=== PATIENT | female | born 2000 | race Caucasian/White ===

== ENCOUNTER → 2020-01-19 12:16 | Outpatient (CLI) | payer OTHER, MEDICAID, SELFPAY ==
[2020-01-19 17:04] LABS: HCG Quantitative /Beta subunit 8240.2 mIU/mL
== END ==
PROVIDERS: Referring Provider Midwife; Visit Provider Midwife
DX: O20.0 Threatened abortion (principal)
CPT/HCPCS: 36415; 84144; 84702

== ENCOUNTER → 2020-01-25 13:04 | Outpatient (CLI) | payer OTHER, MEDICAID, SELFPAY ==
--- NOTE | 2020-01-25 | DI.US.S_ITS ---
PROCEDURE: US OB <= 14 WEEKS FETUS INDICATIONS: SIZE AND DATES OUTSIDE/PRIOR DATING DATA: Last menstrual period (LMP): 12/12/19. LMP-based estimated date of delivery (ELLI): 09/17/20 . First dating scan (date and location): 01/25/20 . Estimated date of delivery (ELLI) from first dating scan: 09/16/20 . TECHNIQUE: Real-time scanning was performed of the fetus and maternal pelvic organs, with image documentation. Endovaginal scanning was also performed to better visualize the fetus and maternal ovaries. COMPARISON: None. FINDINGS: Embryo: [place]-O [place]-rump length measures 7 mm, heart rate is 133 beats per minute. Measurement variability in dating: +/- 4 weeks by LMP, +/- 7 days by mean sac diameter (use before 6 weeks gestation if crown-rump length not able to be measured), +/- 5 days by crown-rump length (up to 8 weeks 6 days gestation), +/- 7 days by crown-rump length (up to 13 weeks 6 days gestation). Maternal organs: Ovaries normal considering gestational status . Limited images through the kidneys demonstrate no hydronephrosis. IMPRESSION: 6 week 3 day early 1st trimester gestation with cardiac activity observed. The delivery date is projected to be centered on 09/16/20, +/-5 days. Dictated by: Sukhdev Curiel M.D. on 01/25/2020 at 16:23 Approved by: Sukhdev Curiel M.D. on 01/25/2020 at 16:25
== END ==
PROVIDERS: Referring Provider Midwife; Visit Provider Midwife
DX: Z36.87 Encounter for antenatal screening for uncertain dates (principal); Z3A.01 Less than 8 weeks gestation of pregnancy
CPT/HCPCS: 76801

== ENCOUNTER 2021-09-19 14:30 | Emergency (ER) | payer OTHER, MEDICAID, SELFPAY ==
[2021-09-19 14:53] VITALS: BP 128/75; PULSE 50; RESP 18; TEMP 36.8; O2SAT 99; BMI 20.5
--- NOTE | 2021-09-19 15:01 | DI.US.S_ITS ---
PROCEDURE: US OB <= 14 WEEKS FETUS INDICATIONS: BLIDDING IN OUTSIDE/PRIOR DATING DATA: Last menstrual period (LMP): 08/16/2021. TECHNIQUE: Real-time scanning was performed of the fetus and maternal pelvic organs, with image documentation. Endovaginal scanning was also performed to better visualize the fetus and maternal ovaries. COMPARISON: None. FINDINGS: No gestational sac or embryo visualized in the uterine fundus. No uterine mass. There are a very large number of dilated and prominent periuterine veins. Both ovaries are normal in appearance. IMPRESSION: No findings of intrauterine or other acute finding. Very large number of dilated and prominent periuterine veins. Dictated by: Ben Xiao M.D. on 09/19/2021 at 16:25 Approved by: Ben Xiao M.D. on 09/19/2021 at 16:27
[2021-09-19 15:52] LABS: Add Manual Diff / Slide Review NO; Basophils Absolute Auto 0 /uL (0-100); Basophils Percent Auto 0.8 % (0-2); Eosinophils Absolute Auto 100 /uL (0-450); Eosinophils Percent Auto 1.8 % (2-4); Hematocrit 40.2 % (36-46); Hemoglobin 13.5 g/dL (12.0-16.0); Lymphocytes Absolute Auto 1800 /uL (1100-4500); Lymphocytes Percent Auto 32.1 % (25-40); Mean Corpuscular HGB Conc 33.6 % (30-36); Mean Corpuscular Hemoglobin 29.6 PG (26-34); Mean Corpuscular Volume 88.1 fL (80-100); Monocytes Absolute Auto 400 /uL (0-900); Monocytes Percent Auto 8.1 % (3-14); Neutrophils Absolute Auto 3100 /uL (1500-7000); Neutrophils Percent Auto 57.2 % (50-75); Platelet Count 229 X10^3/uL (150-400); Red Blood Cell Count 4.56 X10^6/uL (4.0-5.2); Red Cell Distribution Width 13.2 % (11.6-14.8); White Blood Cell Count 5.5 X10^3/uL (4.5-11.0)
[2021-09-19 16:00] LABS: Alanine Aminotransferase 15 IU/L (<35); Albumin 4.8 g/dL (3.5-5.0); Albumin Globulin Ratio 1.5 (1.0-2.8); Alkaline Phosphatase 63 U/L (38-126); Aspartate Aminotransferase 24 IU/L (14-36); BUN Creatinine Ratio 12.5 (6-22); Bilirubin Total 0.9 mg/dL (0.2-1.3); Blood Urea Nitrogen 10 mg/dL (7-17); Calcium 9.3 mg/dL (8.4-10.2); Carbon Dioxide 29 mmol/L (22-32); Chloride 104 mmol/L (98-107); Estimated Glomerular Filt Rate > 60.0 mL/min (>60); Globulin 3.2 g/dL (1.7-4.1); Glucose 101 mg/dL (70-100); HEMOLYSIS < 15 (0-50); Potassium 4.3 mmol/L (3.4-5.1); Sodium 138 mmol/L (137-145)
[2021-09-19 16:17] LABS: HCG Quantitative /Beta subunit 5.1 mIU/mL
[2021-09-19 17:24] VITALS: PULSE 58; O2SAT 96
[2021-09-19 17:30] VITALS: BP 114/71; PULSE 55; O2SAT 96
[2021-09-19 18:00] VITALS: BP 108/70; PULSE 60; O2SAT 97
[2021-09-19 18:30] VITALS: BP 110/62; PULSE 54; RESP 18; TEMP 36.6; O2SAT 100; O2SAT 98
--- NOTE | 2021-09-19 18:42 | ED_ITS ---
HPI - General Chief complaint: Vaginal Bleeding Stated complaint: possible miscarriage 6 weeks Time Seen by Provider: 09/19/21 18:14 Source: patient Mode of arrival: Ambulatory History of Present Illness HPI Narrative: 21-year-old female nonsmoker is a at about 5-6 weeks the presents with a chief complaint of minimal cramping and the passage of a quarter-sized clot this morning. She is now asymptomatic. She denies any dizziness, weakness or lightheadedness. She has had no fever or chills. She denies any ongoing cram ping, bleeding or leakage of fluid. She denies chest pain or shortness of breath. She denies any dysuria, frequency or urgency Related Data Home Medications Medication Instructions Recorded Confirmed VIT #49/IRON FUM/FA (MINI #0 10/17/16 TABLET) fluoxetine 20 mg capsule mg 09/19/21 Previous Rx's Medication Instructions Recorded ondansetron 4 mg disintegrating 4 mg SUBLINGUAL Q6HP PRN #20 odt 10/19/16 tablet (Zofran ODT) Allergies Allergy/AdvReac Type Severity Reaction Status Date / Time gabapentin [GABAPENTIN] Allergy Unknown Verified 09/19/21 15:00 guaifenesin [From MUCINEX] Allergy Unknown Verified 09/19/21 15:00 Review of Systems Review of Systems Narrative: GENERAL: Denies chills, fatigue, malaise, fever, sweats. HEENT: Denies sinus pain, ear pain, sore throat, difficulty swallowing, dizziness. RESPIRATORY: Denies dyspnea, cough, wheezing, hemoptysis, sputum. CARDIOVASCULAR: Denies chest pain, palpitations, orthopnea, edema, GASTROINTESTINAL: Denies nausea, vomiting, abdominal pain, diarrhea, constipation, melena. : See HPI MUSCULOSKELETAL: denies weakness, joint pain, or bony pain SKIN: Denies rash, skin lesions, or other NEUROLOGIC: Denies weakness, headache, numbness, change in speech, confusion, seizures, incoordination. PSYCHIATRIC: No concerning psychosocial issues. 12 point review of systems is negative except for those stated above Exam Narrative Exam Narrative: GENERAL: 21 year old patient appears stated age. Well-developed patient, in mild distress. HEAD: Atraumatic. Normocephalic. EYES: Pupils equal round and reactive. Extraocular motions intact. No scleral icterus. No injection or drainage. ENT: Nose without bleeding, purulent drainage. Throat without erythema, tonsillar hypertrophy or exudate. Airway patent. NECK: Trachea midline. Non tender CARDIOVASCULAR: Regular rate and rhythm without murmurs, gallops, or rubs. RESPIRATORY: Clear to auscultation. Breath sounds equal bilaterally. No wheezes, rales, or rhonchi. GASTROINTESTINAL: Abdomen soft, non-tender, nondistended. EXTREMITIES: No edema or joint tenderness. BACK: Nontender without deformity or crepitance. No flank tenderness. NEURO: AOx3. SKIN: No rash or erythema of visible areas Initial Vital Signs Initial Vital Signs: Vital Signs Temperature 98.2 F 09/19/21 14:53 Pulse Rate 50 L 09/19/21 14:53 Respiratory Rate 18 09/19/21 14:53 Blood Pressure 128/75 09/19/21 14:53 Pulse Oximetry 99 09/19/21 14:53 Course Orders Ordered: ED Orders 09/19/21 15:01 US OB <= 14 weeks fetus Stat 09/19/21 15:20 ABO RH Type Stat Complete Blood Count AUTO DIFF Stat Comprehensive Metabolic Panel Stat HCG Quantitative /Beta subunit Stat Vital Signs Vital signs: Vital Signs - 8 hr 09/19/21 14:53 09/19/21 17:24 09/19/21 17:30 Temperature 98.2 F Pulse Rate 50 L 58 L 55 L Respiratory Rate 18 Blood Pressure 128/75 114/71 Pulse Oximetry 99 96 96 09/19/21 18:00 Temperature Pulse Rate 60 Respiratory Rate Blood Pressure 108/70 Pulse Oximetry 97 MDM - OB/Uterine Contractions Lab Data Attestation: I reviewed the patient's lab results. Result diagrams: 09/19/21 15:20 09/19/21 15:20 Labs: Lab Results 09/19/21 09/19/21 09/19/21 Range/Units 15:20 15:20 15:20 WBC 5.5 (4.5-11.0) X10^3/uL RBC 4.56 (4.0-5.2) X10^6/uL Hgb 13.5 (12.0-16.0) g/dL Hct 40.2 (36-46) % MCV 88.1 (80-100) fL MCH 29.6 (26-34) PG MCHC 33.6 (30-36) % RDW 13.2 (11.6-14.8) % Plt Count 229 (150-400) X10^3/uL Neut % (Auto) 57.2 (50-75) % Lymph % (Auto) 32.1 (25-40) % Sunflower % (Auto) 8.1 (3-14) % Eos % (Auto) 1.8 L (2-4) % Baso % (Auto) 0.8 (0-2) % Neut # (Auto) 3100 (4083-6523) /uL Lymph # (Auto) 1800 (3132-2777) /uL Sunflower # (Auto) 400 (0-900) /uL Eos # (Auto) 100 (0-450) /uL Baso # (Auto) 0 (0-100) /uL Sodium 138 (137-145) mmol/L Potassium 4.3 (3.4-5.1) mmol/L Chloride 104 (98-107) mmol/L Carbon Dioxide 29 (22-32) mmol/L BUN 10 (7-17) mg/dL Creatinine 0.80 (0.52-1.04) mg/dL Estimated GFR > 60.0 (>60) mL/min BUN/Creatinine Ratio 12.5 (6-22) Glucose 101 H (70-100) mg/dL Calcium 9.3 (8.4-10.2) mg/dL Total Bilirubin 0.9 (0.2-1.3) mg/dL AST 24 (14-36) IU/L ALT 15 (<35) IU/L Alkaline Phosphatase 63 (38-126) U/L Total Protein 8.0 (6.3-8.2) g/dL Albumin 4.8 (3.5-5.0) g/dL Globulin 3.2 (1.7-4.1) g/dL Albumin/Globulin Ratio 1.5 (1.0-2.8) HCG, Quant 5.1 mIU/mL Blood Type O Positive Urine Dip Bedside Urine Glucose Negative Bedside Urine Bilirubin - Negative Bedside Urine Ketone + 15 Urine Specific [place] 1.015 Bedside Urine Occult Blood - Negative Bedside Urine pH 6.0 Bedside Urine Protein - Negative Bedside Urine Urobilinogen - Negative Bedside Urine Nitrite - Negative Bedside Urine Leukocytes - Negative Esterase Imaging Data US - OB: Radiologist's Impression: Yesenia Arrieta??21??F??2000 ? Allergy/Adv: gabapentin, guaifenesin Close Ultrasound (Signed) Ben Xiao - 09/19/21 Ultrasound (Signed) Sukhdev Curiel - 01/25/20 Launch?[address] [address] Ultrasound Report Signed Patient: Yesenia Arrieta MR#: [id number] : 2000 Acct:[id number] Age/Sex: 21 / F Date of Service: 09/19/21 Loc: ED Accession Number: [id number] ?? Procedure: US OB <= 14 weeks fetus Ordering Provider: Micheline Hines D.O. PROCEDURE:? US OB <= 14 WEEKS FETUS ? INDICATIONS:? BLIDDING IN ? OUTSIDE/PRIOR DATING DATA:? Last menstrual period (LMP):? 08/16/2021.? ? TECHNIQUE:? Real-time scanning was performed of the fetus and maternal pelvic organs, with image documentation.? Endovaginal scanning was also performed to better visualize the fetus and maternal ovaries.? ? COMPARISON:? None. ? FINDINGS:? No gestational sac or embryo visualized in the uterine fundus.? No uterine mass.? There are a very large number of dilated and prominent periuterine veins.? Both ovaries are normal in appearance. ? ? IMPRESSION:? No findings of intrauterine or other acute finding.? Very large number of dilated and prominent periuterine veins. ? ? ? Dictated by: Ben Xiao M.D. on 09/19/2021 at 16:25 ? ? Approved by: Ben Xiao M.D. on 09/19/2021 at 16:27 ? Discharge Plan Departure Patient Disposition: Home Clinical Impression: Vaginal bleeding Instructions: DI for Vaginal Bleeding During Activity Restrictions/Additional Instructions: *You have been diagnosed with [vaginal bleeding during 1st trimester. As we discussed it is hard to tell because of your symptoms, currently your history and physical exam as well as labs and ultrasound are very reassuring. Also, as we discussed without more information and a bit more time and is hard to tell if this is very early with a normal or if this is a miscarriage that happened recently. *What to do: *Please continue to take your regular medications as directed. [ ] New medication prescriptions sent to your pharmacy: [ ] [ ] New medication written as a paper prescription [ x] No new medications given *Please follow up with your primary OB provider in 2-3 days, call for an appointment. Let them know you were seen in the Emergency Department and that we ask that you be seen in follow up. We will electronically transmit a record of today's note if possible * it would be helpful to get a repeat beta hCG in a few days to see if it is going up or going down, with this information we will no with much more accuracy what is happening. *Return to Emergency Department if you should have any new, worsening or concerning symptoms, such as [fever greater than 101 F, shaking chills, worsening pain, persistent vomiting, vaginal bleeding through more than 1 pad per hour other bothersome symptoms] Prescriptions: No Action VIT #49/IRON FUM/FA (MINI TABLET) Qty: 0 0RF ondansetron [Zofran ODT] 4 MG tablet,disintegrating 4 mg Sublingual Q6HP PRNQty: 20 0RF fluoxetine 20 mg capsule 0RF Referrals: Adalgisa Varner DO [Physician] -
== END 2021-09-19 18:54 | disposition home or self-care (01) ==
PROVIDERS: Emergency Medicine; Emergency Provider Emergency Medicine
DX: O20.9 Hemorrhage in early pregnancy, unspecified (principal); Z3A.01 Less than 8 weeks gestation of pregnancy
CPT/HCPCS: 36415; 76801; 76817; 80053; 81003; 84702; 85025; 86900; 86901; 99283; 99284

== ENCOUNTER 2021-10-21 18:00 | Emergency (ER) | payer OTHER, MEDICAID, SELFPAY ==
[2021-10-21 18:03] VITALS: BP 132/86; PULSE 61; RESP 22; TEMP 36.9; O2SAT 99
[2021-10-21] MEDS: SODIUM CHLORIDE 0.9% 1,000 ML 1000 ML IV (20:14)
[2021-10-21] MEDS: ONDANSETRON 4 MG/2 ML INJ IV (20:14)
[2021-10-21 21:35] VITALS: BP 121/74; PULSE 55; O2SAT 100
--- NOTE | 2021-10-21 22:52 | ED.NAVMDI ---
HPI - Nausea/Vomiting/Diarrhea General Chief complaint: Nausea/Vomiting/Diarrhea Stated complaint: MARIJUANA WITHDRAWALS NERVOUS NOT ABLE TO SLEEP Time Seen by Provider: 10/21/21 22:52 Source: patient Mode of arrival: Ambulatory History of Present Illness HPI Narrative: 21-year-old woman with complaints of withdrawal syndrome from marijuana and requesting help with such. She has a history of depression and has been on off medications. She finally weaned off antidepressants and started smoking quite a bit of marijuana. She has worked up to almost a full oz a week. She has not smoked for the last 48 hours and is noticing dramatic agitation, aggression, nervous anxiety, panic feelings to the point hand tremors, restlessness and inability to sleep. She also notes that looking at food makes her nauseated and she has not been able to eat in the last 2 days. She is able to drink water. Incidentally over last month she has had significant bruising over her legs and only her legs. Denies any other bleeding abnormalities. No chest pain palpitations. She has had no diarrhea she has had a couple episodes of emesis and is dealing with chronic nausea. Related Data Home Medications Medication Instructions Recorded Confirmed VIT #49/IRON FUM/FA (MINI #0 10/17/16 TABLET) fluoxetine 20 mg capsule mg 09/19/21 Previous Rx's Medication Instructions Recorded ondansetron 4 mg disintegrating 4 mg SUBLINGUAL Q6HP PRN #20 odt 10/19/16 tablet (Zofran ODT) clonazepam 0.5 mg tablet 0.5 mg PO BEDTIME #9 tab 10/21/21 ondansetron 4 mg disintegrating 4 mg PO Q8H PRN #14 tab 10/21/21 tablet promethazine 25 mg tablet 25 mg PO Q6H PRN #20 tab 10/21/21 Allergies Allergy/AdvReac Type Severity Reaction Status Date / Time gabapentin [GABAPENTIN] Allergy Unknown Verified 09/19/21 15:00 guaifenesin [From MUCINEX] Allergy Unknown Verified 09/19/21 15:00 Review of Systems Review of Systems Narrative: Remainder of complete review of systems is otherwise unremarkable except for that included in the HPI. Patient History Social History Smoking Status: Never smoker Smoking Status: Never smoker alcohol intake frequency: other Substance Use Type: marijuana Exam Initial Vital Signs Initial Vital Signs: Vital Signs Temperature 98.4 F 10/21/21 18:03 Pulse Rate 61 10/21/21 18:03 Respiratory Rate 22 10/21/21 18:03 Blood Pressure 132/86 10/21/21 18:03 Pulse Oximetry 99 10/21/21 18:03 General: Healthy appearing, in no acute distress. Able to give a complete and coherent history. Well-nourished well-developed HEENT: Moist mucous membranes, normal sclera with reactive pupils, Neck: No JVD, supple Respiratory: Lungs are clear to auscultation, no wheezing no rales no rhonchi. Full and symmetrical air movement Cardiac: Regular rate and rhythm no murmurs no bruits Abdomen: Soft, nontender, good bowel tones, no flank pain Skin: Warm and dry, multiple bruises in various stages of healing over lower extremities without any overt pattern Neurologic: Grossly neurologically intact with no obvious asymmetries or abnormalities Extremities: No trauma, well perfused Psych: Cooperative, appropriate insight and affect, good eye contact, fluent speech pattern, no suicidal ideation Course Orders Ordered: ED Orders 10/21/21 20:13 Complete Blood Count AUTO DIFF Stat Comprehensive Metabolic Panel Stat Discontinued Medications Clonazepam (Clonazepam 0.5 Mg Tablet) 1 mg PO NOW ONE Stop: 10/21/21 23:16 Last Admin: 10/21/21 23:39 Dose: 1 mg Documented by: SNEHAL Sodium Chloride (Normal Saline 0.9%) 1,000 mls @ 1,000 mls/hr IV BOLUS ONE Stop: 10/21/21 21:07 Last Infusion: 10/21/21 22:49 Dose: 0 mls/hr Documented by: Admin: 10/21/21 20:14 Dose: 1,000 mls/hr Documented by: BORIS Ondansetron HCl (Ondansetron 4 Mg/2 Ml Inj) 4 mg IV NOW ONE Stop: 10/21/21 20:09 Last Admin: 10/21/21 20:14 Dose: 4 mg Documented by: BORIS Promethazine HCl (Promethazine 25 Mg Tablet) 25 mg PO NOW ONE Stop: 10/21/21 23:16 Vital Signs Vital signs: Vital Signs - 8 hr 10/21/21 21:35 Pulse Rate 55 L Blood Pressure 121/74 Pulse Oximetry 100 MDM - Nausea/Vomiting/Diarrhea Lab Data Result diagrams: 10/21/21 20:13 10/21/21 20:13 Labs: Lab Results 10/21/21 10/21/21 Range/Units 20:13 20:13 WBC 4.7 (4.5-11.0) X10^3/uL RBC 4.66 (4.0-5.2) X10^6/uL Hgb 13.7 (12.0-16.0) g/dL Hct 40.9 (36-46) % MCV 87.8 (80-100) fL MCH 29.5 (26-34) PG MCHC 33.6 (30-36) % RDW 13.5 (11.6-14.8) % Plt Count 232 (150-400) X10^3/uL Neut % (Auto) 54.2 (50-75) % Lymph % (Auto) 33.7 (25-40) % [place] % (Auto) 8.1 (3-14) % Eos % (Auto) 2.7 (2-4) % Baso % (Auto) 1.3 (0-2) % Neut # (Auto) 2600 (3452-8024) /uL Lymph # (Auto) 1600 (8733-6252) /uL [place] # (Auto) 400 (0-900) /uL Eos # (Auto) 100 (0-450) /uL Baso # (Auto) 100 (0-100) /uL Sodium 140 (137-145) mmol/L Potassium 4.1 (3.4-5.1) mmol/L Chloride 105 (98-107) mmol/L Carbon Dioxide 25 (22-32) mmol/L BUN 12 (7-17) mg/dL Creatinine 0.81 (0.52-1.04) mg/dL Estimated GFR > 60 (>60) mL/min BUN/Creatinine Ratio 14.8 (6-22) Glucose 82 (70-100) mg/dL Calcium 9.2 (8.4-10.2) mg/dL Total Bilirubin 1.2 (0.2-1.3) mg/dL AST 29 (14-36) IU/L ALT 15 (<35) IU/L Alkaline Phosphatase 61 (38-126) U/L Total Protein 8.2 (6.3-8.2) g/dL Albumin 4.8 (3.5-5.0) g/dL Globulin 3.4 (1.7-4.1) g/dL Albumin/Globulin Ratio 1.4 (1.0-2.8) MDM Narrative Medical decision making narrative: 21-year-old woman who started smoking quite a bit of marijuana to help with anxiety and depression. 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 She also has 2 healthy children. She is not interested in getting back to antidepressants and feels like her mood disorder is actually relatively well treated at this time. She has an appointment with her primary care physician tomorrow. We talked about options and I suggested brief course of clonazepam, 1 mg at HS for 3 days and then 0.5 mg at HS for 3 days to help with the anxiety symptoms and sleep. Will also give her a prescription for Phenergan for the nausea to use it's sedative benefits and Zofran if that proves ineffective. Encouraged her to keep her appointment with her primary care physician at 8:30 a.m. tomorrow morning. Lab work will be done particularly in light of the increased lower extremity bruising will make sure that she has copies of this to share with her primary care physician to discuss 1st thing in the morning. Questions are answered she is safe for home discharge Discharge Plan Departure Patient Disposition: Home Clinical Impression: Cannabis use disorder, moderate, dependence, Anxiety and depression Instructions: DI for Anxiety -- Adult Activity Restrictions/Additional Instructions: Thank you for coming in today I am very glad you decided to stop smoking marijuana, it sounds like it is causing significant health problems for you. As a bridge to getting past the anxiety and agitation symptoms, I am going to suggest that we use clonazepam for the next 6 days. Please take 2 pills at night for the 1st 3 days and then 1 pill for the next 3 days You can use Phenergan every 6 hours to help with nausea. This can help with some of the anxiety and may make you sleepy which may actually be helpful as well Zofran can also be used as needed I will send you copies of the blood work done from today for you to review with her primary care doctor tomorrow morning I wish you the very best Prescriptions: New clonazepam 0.5 mg tablet 0.5 mg PO BEDTIME Qty: 9 0RF Rx Instructions: administer 30 minutes before bedtime promethazine 25 mg tablet 25 mg PO Q6H PRN (Reason: nausea and vomiting) Qty: 20 0RF ondansetron 4 mg tablet,disintegrating 4 mg PO Q8H PRN (Reason: nausea and vomiting) Qty: 14 0RF No Action VIT #49/IRON FUM/FA (MINI TABLET) Qty: 0 0RF ondansetron [Zofran ODT] 4 MG tablet,disintegrating 4 mg Sublingual Q6HP PRNQty: 20 0RF fluoxetine 20 mg capsule 0RF
[2021-10-21 23:30] LABS: Add Manual Diff / Slide Review NO; Basophils Absolute Auto 100 /uL (0-100); Basophils Percent Auto 1.3 % (0-2); Eosinophils Absolute Auto 100 /uL (0-450); Eosinophils Percent Auto 2.7 % (2-4); Hematocrit 40.9 % (36-46); Hemoglobin 13.7 g/dL (12.0-16.0); Lymphocytes Absolute Auto 1600 /uL (1100-4500); Lymphocytes Percent Auto 33.7 % (25-40); Mean Corpuscular HGB Conc 33.6 % (30-36); Mean Corpuscular Hemoglobin 29.5 PG (26-34); Mean Corpuscular Volume 87.8 fL (80-100); Monocytes Absolute Auto 400 /uL (0-900); Monocytes Percent Auto 8.1 % (3-14); Neutrophils Absolute Auto 2600 /uL (1500-7000); Neutrophils Percent Auto 54.2 % (50-75); Platelet Count 232 X10^3/uL (150-400); Red Blood Cell Count 4.66 X10^6/uL (4.0-5.2); Red Cell Distribution Width 13.5 % (11.6-14.8); White Blood Cell Count 4.7 X10^3/uL (4.5-11.0)
[2021-10-21 23:31] LABS: Alanine Aminotransferase 15 IU/L (<35); Albumin 4.8 g/dL (3.5-5.0); Albumin Globulin Ratio 1.4 (1.0-2.8); Alkaline Phosphatase 61 U/L (38-126); Aspartate Aminotransferase 29 IU/L (14-36); BUN Creatinine Ratio 14.8 (6-22); Bilirubin Total 1.2 mg/dL (0.2-1.3); Blood Urea Nitrogen 12 mg/dL (7-17); Calcium 9.2 mg/dL (8.4-10.2); Carbon Dioxide 25 mmol/L (22-32); Chloride 105 mmol/L (98-107); Estimated Glomerular Filt Rate > 60 mL/min (>60); Globulin 3.4 g/dL (1.7-4.1); Glucose 82 mg/dL (70-100); HEMOLYSIS < 15 (0-50); Potassium 4.1 mmol/L (3.4-5.1); Sodium 140 mmol/L (137-145); Total Protein 8.2 g/dL (6.3-8.2)
[2021-10-21] MEDS: clonazePAM 0.5 MG TABLET 1 MG PO (23:39)
== END 2021-10-21 23:40 | disposition home or self-care (01) ==
PROVIDERS: Emergency Provider Emergency Medicine
DX: F12.20 Cannabis dependence, uncomplicated (principal); R11.0 Nausea; F41.9 Anxiety disorder, unspecified; F32.A Depression, unspecified
CPT/HCPCS: 80053; 85025; 96374; 99284; J2405